=== PATIENT | male | born 1965 | race Two or more races ===

== ENCOUNTER 2020-12-05 15:33 | Emergency (ER) | payer OTHER, SELFPAY ==
[~2020-12-05] VITALS: Ht 167.6 cm; Wt 79.4 kg
[2020-12-05 15:36] VITALS: BP 142/98
--- NOTE | 2020-12-05 15:42 | NUR ---
ACCOUNTS RECEIVABLE ASSOCIATE: PT PLACED IN NECK BRACE AND WC.
[2020-12-05] MEDS ORDERED: KETOROLAC 30 MG/1 ML IM ONE (16:00)
[2020-12-05] MEDS ORDERED: LIDODERM 5% PATCH TD ONE ×2 (16:00→16:14)
[2020-12-05] MEDS ORDERED: KETOROLAC 30 MG/1 ML ONE (16:15)
[2020-12-05] MEDS ORDERED: IBUPROFEN 800 MG TABLET ONE (16:18)
[2020-12-05] MEDS ORDERED: IBUPROFEN 800 MG TABLET PO ONE (16:30)
== END 2020-12-05 17:52 | disposition home or self-care (01) ==
LOC: ED 17:46
DX: S16.1XXA Strain of muscle, fascia and tendon at neck level, initial encounter (principal); S39.012A Strain of muscle, fascia and tendon of lower back, initial encounter; S29.012A Strain of muscle and tendon of back wall of thorax, initial encounter; V49.49XA Driver injured in collision with other motor vehicles in traffic accident, initial encounter; Y93.89 Activity, other specified; Y92.488 Other paved roadways as the place of occurrence of the external cause; Y99.8 Other external cause status
CPT/HCPCS: 72072; 72110; 72125; 99284